=== PATIENT | male | born 1985 | race African-American/Black ===

== ENCOUNTER 2017-04-30 16:52 | Emergency (ER) | payer SELFPAY ==
[2017-04-30] MEDS ORDERED: NORMAL SALINE 1000 ML 1,000 ML IV ONE (17:44)
--- NOTE | 2017-04-30 17:46 | ER Document Report ---
ED Medical Screen (RME) - General Chief Complaint: Neck Pain >24hrs old Stated Complaint: NECK PAIN, HEADACHE,NAUSEA Time Seen by Provider: 04/30/17 17:44 Notes: Patient reports 3 days of bilateral frontal headache and neck stiffness. Patient does not have meningismus on exam. Patient also reports a cough but no significant shortness of breath. Patient reports generalized body aches. No problems with urination or bowel movements. No abdominal pain. No rashes or tick bites. Patient's had some subjective fever and chills. He has had nausea but no vomiting. TRAVEL OUTSIDE OF THE [place] IN LAST 30 DAYS: No - Related Data Allergies/Adverse Reactions: bee stings Allergy (Uncoded 04/30/17 16:58) Past Medical History - Past Medical History Cardiac Medical History: Reports: Hx Hypertension Renal/ Medical History: Denies: Hx Peritoneal Dialysis - Immunizations Hx Diphtheria, Pertussis, Tetanus Vaccination: Yes Physical Exam - Vital signs Vitals: Temp Pulse Resp BP Pulse Ox 99.9 F 83 16 188/116 H 95 04/30/17 16:58 04/30/17 16:58 04/30/17 16:58 04/30/17 16:58 04/30/17 16:58 Course - Vital Signs Vital signs: Temp Pulse Resp BP Pulse Ox 99.9 F 83 16 188/116 H 95 04/30/17 16:58 04/30/17 16:58 04/30/17 16:58 04/30/17 16:58 04/30/17 16:58
[2017-04-30] MEDS ORDERED: METOPROLOL TARTRATE 50 MG TABLET PO ONE (19:04)
[2017-04-30] MEDS ORDERED: PROCHLORPERAZINE MALEATE 10 MG TABLET PO ONE (19:05)
[2017-04-30] MEDS ORDERED: IBUPROFEN 800 MG TABLET PO ONE (19:05)
[2017-04-30] MEDS ORDERED: DIPHENHYDRAMINE HCL 50 MG CAPSULE PO ONE (19:05)
--- NOTE | 2017-04-30 19:11 | RADIOLOGY REPORT (SQ) ---
EXAM DESCRIPTION: CHEST PA/LAT COMPLETED DATE/TIME: 04/30/2017 7:03 pm REASON FOR STUDY: cough/fever COMPARISON: 02/21/2013 NUMBER OF VIEWS: Two view. TECHNIQUE: Frontal and lateral radiographic views of the chest acquired. LIMITATIONS: None. FINDINGS: LUNGS AND PLEURA: Mild Peribronchial cuffing and interstitial changes. No consolidation, effusion, or pneumothorax. MEDIASTINUM AND HILAR STRUCTURES: No masses. No contour abnormalities. HEART AND VASCULAR STRUCTURES: Heart normal in size and contour. No evidence for failure. BONES: No acute findings. HARDWARE: None in the chest. OTHER: No other significant finding. IMPRESSION: REACTIVE AIRWAY DISEASE VERSUS VIRAL SYNDROME. NO CONSOLIDATION. TECHNICAL DOCUMENTATION: JOB ID: [id number] [employer]- All Rights Reserved
--- NOTE | 2017-04-30 19:30 | ER Document Report ---
ED General <PEYTON TREJO - Last Filed: 04/30/17 21:07> - General Mode of Arrival: Ambulatory Information source: Patient TRAVEL OUTSIDE OF THE [place] IN LAST 30 DAYS: No - HPI Onset: Other - Refer to HPI notes Similar symptoms previously: No Recently seen / treated by doctor: No <JENNA HERRERA - Last Filed: 04/30/17 22:23> - General Chief Complaint: Neck Pain >24hrs old Stated Complaint: NECK PAIN, HEADACHE,NAUSEA Time Seen by Provider: 04/30/17 17:44 Notes: Patient is a 31 year old male presenting to the emergency department for headache and neck pain x 3 days. Patient points bilaterally to his posterior cervical musculature laterally and states his headache is in his forehead, temporal and scalp. Patient also has felt hot and fever like. Patient also complains of nausea, non-productive cough, slight sore throat, and some mild dizziness. Patient denies any vomiting, diarrhea, or rhinorrhea. Patient states he has a history of hypertension but is not on medication due to recently moving here and not having a PCP yet. Patient states he moved here from [place] and he works at [employer]. Patient has no known drug allergies. (JENNA HERRERA ) - Related Data Allergies/Adverse Reactions: bee stings Allergy (Uncoded 04/30/17 16:58) Past Medical History - General Information source: Patient - Social History Smoking Status: Never Smoker Cigarette use (# per day): No Chew tobacco use (# tins/day): No Smoking Education Provided: No Frequency of alcohol use: None Drug Abuse: None Family History: None Patient has suicidal ideation: No Patient has homicidal ideation: No - Past Medical History Cardiac Medical History: Reports: Hx Hypertension Surgical Hx: Negative - Immunizations Hx Diphtheria, Pertussis, Tetanus Vaccination: Yes <JENNA HERRERA - Last Filed: 04/30/17 22:23> Review of Systems - Review of Systems Constitutional: See HPI, Malaise EENT: See HPI, Throat pain Cardiovascular: See HPI, Dizziness Respiratory: See HPI, Cough Gastrointestinal: See HPI, Nausea Genitourinary: No symptoms reported Male Genitourinary: No symptoms reported Musculoskeletal: See HPI, Neck pain Skin: No symptoms reported Hematologic/Lymphatic: No symptoms reported Neurological/Psychological: See HPI, Headaches -: Yes All other systems reviewed and negative <SHARONJENNA - Last Filed: 04/30/17 22:23> Physical Exam <PEYTON TREJO - Last Filed: 04/30/17 21:07> - Vital signs Interpretation: Hypertensive <JENNA HERRERA - Last Filed: 04/30/17 22:23> - Vital signs Vitals: Temp Pulse Resp BP Pulse Ox 99.9 F 83 16 188/116 H 95 04/30/17 16:58 04/30/17 16:58 04/30/17 16:58 04/30/17 16:58 04/30/17 16:58 - Notes Notes: GENERAL: Alert, interacts well. No acute distress. HEAD: Normocephalic, atraumatic. Temporal, forehead, and scalp musculature is tender to palpate. EYES: Appear normal. Pupils equal, round, and reactive to light. Extraocular movements intact-no lateral gaze nystagmus. ENT: Moist mucus membranes, tongue midline. NECK: Full range of motion. Supple. Trachea midline. Posterior cervical musculature is tender to palpate laterally bilaterally. LUNGS: Clear to auscultation bilaterally, no wheezes, rales, or rhonchi. No respiratory distress. HEART: Regular rate and rhythm. No murmurs, gallops, or rubs. ABDOMEN: Obese. Soft, non-tender. Non-distended. Normal bowel sounds. EXTREMITIES: Moves all 4 extremities spontaneously. Normal strength. No edema. NEUROLOGICAL: Alert and oriented x3. Normal speech. No focal neurological deficits. GSC 15. PSYCH: Normal affect, normal mood. SKIN: Warm, dry, normal turgor. No rashes or lesions noted. (JENNA HERRERA) Course - Laboratory Result Diagrams: 04/30/17 20:05 04/30/17 20:05 <PEYTON TREJO - Last Filed: 04/30/17 21:07> - Laboratory Result Diagrams: 04/30/17 20:05 04/30/17 20:05 <JENNA HERRERA - Last Filed: 04/30/17 22:23> - Re-evaluation Re-evalutation: 04/30/17 21:18 Patient reports his head is feeling somewhat better. He is actually looking at his computer and has sound on quite loud. (PEYTON TREJO) - Vital Signs Vital signs: Temp Pulse Resp BP Pulse Ox 98.5 F 71 18 166/112 H 100 04/30/17 21:11 04/30/17 22:03 04/30/17 22:03 04/30/17 22:03 04/30/17 22:03 - Laboratory Laboratory results interpreted by me: 04/30/17 04/30/17 04/30/17 19:26 20:05 20:05 Hgb 12.8 L MCV 78 L MCH 25.2 L RDW 16.9 H Potassium 3.1 L Total Protein 8.3 H Urine Protein 30 H Urine Urobilinogen 2.0 H Discharge <PEYTON TREJO - Last Filed: 04/30/17 21:07> <JENNA HERRERA - Last Filed: 04/30/17 22:23> - Discharge Clinical Impression: Viral syndrome, Tension headache High blood pressure Qualifiers: Hypertension type: essential hypertension Qualified Code(s): I10 - Essential ( primary) hypertension Condition: Stable Disposition: HOME, SELF-CARE Additional Instructions: Viral Syndrome: The physician has diagnosed a viral infection. Viruses not only cause "colds," but can cause many different symptoms including generalized aching, fever, headache, cough, diarrhea, nausea, vomiting, and fatigue. The treatment, for the most part, is simply relief of symptoms. This means that antibiotics are usually not given. Rest, fluids, pain medications and, occasionally, medication for the specific symptoms that are most bothersome will be prescribed. Use good handwashing to avoid passing the virus to others. Shared toys should be cleaned with disinfectant. Clean the toilets, sinks, and counter surfaces in bathrooms. Launder clothing in hot water. Contact the physician if you develop any new or unusual symptoms such as severe headache, stiff neck, high fever, chest pain, productive cough, or shortness of breath. You should be rechecked if you don't see marked improvement within seven to 10 days. Tension Headache: Your problem has been diagnosed as muscle tension headache. This very common type of headache occurs because of tightness in the muscles of the head and neck. The cause may be neck or jaw joint problems, but most commonly the cause is emotional stress. The headache may last hours or days. The treatment of uncomplicated tension headaches is rest and pain medication. Often, the newer antiinflammatory pain medications are prescribed, as these also decrease the irritability of the painful tissues. Muscle relaxers , cold packs, or warm packs are sometimes helpful. Anti-anxiety medication or narcotics are sometimes needed temporarily, but are best avoided in the long run. Your doctor has evaluated your headache problem, and finds no evidence of a serious health problem as a cause for the headache. If your headache becomes more severe, or if new symptoms develop (such as fever, stiff neck, vomiting, or decreasing alertness) you should be re-examined by the physician. High Blood Pressure, Requiring Treatment Your blood pressure is high. This is called "hypertension." Today's reading was 188/116 (normal is less than 140/90). Your history and exam suggest that this is not a temporary problem. You need treatment of your blood pressure. If left untreated, high blood pressure greatly increases your risk of heart attack and stroke. Please don't ignore this problem. If you have blood pressure medicine but aren't using it regularly, start taking it again. Some simple things you can do to help are: Get some aerobic exercise for at least 20 minutes on a daily basis. (See your doctor before beginning any new exercise program.) Eat a low-fat diet. Lose excess weight. Avoid salty foods and avoid adding salt to any of the foods you eat. Avoid diet pills, decongestants, "energizing" herbs, and other medicines that elevate blood pressure. There are many different medicines that treat blood pressure. If your medication causes unpleasant side effects, call your doctor. There are others you can try. Treating hypertension is a life-long investment in your health. TAKE THE MEDICATION PRESCRIBED FOR HIGH BLOOD PRESSURE. TAKE TYLENOL AND MOTRIN OR ALEVE FOR THE HEADACHE. TRY ICE-PACKS AND/OR MOIST HEAT TO THE PAINFUL MUSCLES. REST IN A COOL DARK, QUIET PLACE. FOLLOW UP WITH A LOCAL MEDICAL DOCTOR IF NOT IMPROVING. FOLLOW UP WITH A LOCAL MEDICAL DOCTOR TO MANAGE YOUR BLOOD PRESSURE. RETURN TO THE EMERGENCY ROOM IF ANY NEW OR WORSENING SYMPTOMS. Prescriptions: Lisinopril 40 mg PO DAILY #30 tablet Forms: Return to Work Scribe Attestation: 04/30/17 21:18 I personally performed the services described in the documentation, reviewed and edited the documentation which was dictated to the scribe in my presence, and it accurately records my words and actions. (PEYTON TREJO) Scribe Documentation - Scribe Written by Scribe:: Reg Plummer 04/30/17 19:34 acting as scribe for :: Khai <JENNA HERRERA - Last Filed: 04/30/17 22:23>
[2017-04-30 19:49] LABS: APPEARANCE,URINE SLIGHTLY-CLOUDY; BILIRUBIN,URINE NEGATIVE (NEGATIVE); GLUCOSE, URINE NEGATIVE (NEGATIVE); KETONES,URINE NEGATIVE (NEGATIVE); LEUKOCYTE ESTERASE,URINE NEGATIVE (NEGATIVE); NITRITE,URINE NEGATIVE (NEGATIVE); PROTEIN,URINE 30 mg/dL (NEGATIVE); URINE SPECIFIC GRAVITY 1.017
[2017-04-30 20:16] LABS: ABSOLUTE BASOPHILS # (AUTO) 0.1 10^3/uL (0.0-0.2); ABSOLUTE EOSINOPHILS # (AUTO) 0.1 10^3/uL (0.0-0.6); ABSOLUTE LYMPHOCYTES (AUTO) 1.9 10^3/uL (0.5-4.7); ABSOLUTE MONOCYTES (AUTO) 0.7 10^3/uL (0.1-1.4); ABSOLUTE NEUT (AUTO) 4.6 10^3/uL (1.7-8.2); BASOPHILS % (AUTO) 1.1 % (0-2); EOSINOPHILS % (AUTO) 1.5 % (0-6); HEMATOCRIT 39.2 % (37.9-51.0); HEMOGLOBIN 12.8 g/dL (13.5-17.0); HGB HCT DIFFERENCE -0.8; LYMPHOCYTES % (AUTO) 26.2 % (13-45); MEAN CORPUSCULAR HEMOGLOBIN 25.2 pg (27.0-33.4); MEAN CORPUSCULAR HGB CONC 32.6 g/dL (32.0-36.0); MEAN CORPUSCULAR VOLUME 78 fl (80-97); MONOCYTES % (AUTO) 9.2 % (3-13); RED BLOOD COUNT 5.07 10^6/uL (4.35-5.55); RED CELL DISTRIBUTION WIDTH 16.9 % (11.5-14.0); WHITE BLOOD COUNT 7.4 10^3/uL (4.0-10.5)
[2017-04-30 20:32] LABS: ALANINE AMINOTRANSFERASE 48 U/L (21-72); ALBUMIN 4.7 g/dL (3.5-5.0); ALKALINE PHOSPHATASE 111 U/L (38-126); ANION GAP 15 (5-19); ASPARTATE AMINO TRANSFERASE 46 U/L (17-59); BILIRUBIN,DIRECT 0.4 mg/dL (0.0-0.4); BILIRUBIN,TOTAL 0.5 mg/dL (0.2-1.3); BLOOD UREA NITROGEN 10 mg/dL (7-20); CALCIUM 9.4 mg/dL (8.4-10.2); CARBON DIOXIDE 27 mmol/L (22-30); CHLORIDE 102 mmol/L (98-107); CREATININE RESULT 0.82 mg/dL (0.52-1.25); GLUCOSE 94 mg/dL (75-110); POTASSIUM 3.1 mmol/L (3.6-5.0); SODIUM 144.2 mmol/L (137-145); TOTAL PROTEIN 8.3 g/dL (6.3-8.2)
[2017-04-30] MEDS ORDERED: LISINOPRIL 10 MG TABLET PO ONE (21:17)
[2017-04-30 22:05] VITALS: BP 166/112
== END 2017-04-30 22:03 | disposition home or self-care (01) ==
LOC: ER 16:52
DX: G44.209 Tension-type headache, unspecified, not intractable (principal); I10 Essential (primary) hypertension; B34.9 Viral infection, unspecified; R53.81 Other malaise; R05 Cough; R42 Dizziness and giddiness; M54.2 Cervicalgia; R11.0 Nausea; J02.9 Acute pharyngitis, unspecified; Z91.030 Bee allergy status
CPT/HCPCS: 99283; 36415; 87040; 87070; 87880; 85025; 80053; 81001; 71020; S0183